=== PATIENT | male | born 1935 | race Caucasian/White ===

== ENCOUNTER → 2018-04-24 08:37 | Outpatient (CLI) | payer OTHER, SELFPAY ==
[2018-04-24 09:45] LABS: INR 3.9 (0.9-1.3); Prothrombin Time 42.2 SECONDS (10.1-12.7)
[2018-04-24 10:18] LABS: Alanine Aminotransferase 40 IU/L (21-72); Albumin 4.4 g/dL (3.5-5.0); Albumin Globulin Ratio 1.7 (1.0-2.8); Alkaline Phosphatase 44 U/L (38-126); Aspartate Aminotransferase 42 IU/L (17-59); BUN Creatinine Ratio 21.3 (6-22); Bilirubin Total 0.9 mg/dL (0.2-1.3); Blood Urea Nitrogen 17 mg/dL (9-20); Calcium 9.1 mg/dL (8.4-10.2); Carbon Dioxide 28 mmol/L (22-32); Chloride 102 mmol/L (98-107); Estimated Glomerular Filt Rate > 60.0 mL/min (>60); Globulin 2.6 g/dL (1.7-4.1); Glucose 115 mg/dL (80-110); HEMOLYSIS < 15 (0-50); Magnesium 2.2 mg/dL (1.6-2.3); Potassium 4.9 mmol/L (3.4-5.1); Sodium 141 mmol/L (137-145)
[2018-04-28 11:44] LABS: Lipoprofile NMR SEE SEPARATE REPORTS
== END ==
PROVIDERS: PCP Internal Medicine; Visit Provider Specialist
DX: I25.5 Ischemic cardiomyopathy (principal); E78.2 Mixed hyperlipidemia; I10 Essential (primary) hypertension; Z79.01 Long term (current) use of anticoagulants; Z95.810 Presence of automatic (implantable) cardiac defibrillator; Z95.4 Presence of other heart-valve replacement
CPT/HCPCS: 36415; 80053; 83704; 83735; 85610

== ENCOUNTER 2018-04-28 09:00 | Day surgery (SDC) | payer OTHER, SELFPAY ==
[2018-04-28] MEDS: PROPARACAINE 0.5% OPHTH SOL 2 DROPS EYE-OP (09:23)
[2018-04-28] MEDS: CATARACT EYE COMPOUND (10 DROPS/SYRINGE) 3 DROPS EYE-OP (09:28)
[2018-04-28 09:44] VITALS: BP 131/81; PULSE 78; RESP 16; TEMP 36.6; O2SAT 97
--- NOTE | 2018-04-28 10:23 | PM.PREOP ---
Pre-operative Note Interval Note Pre-op Check: History & Physical Reviewed by Physician
--- NOTE | 2018-04-28 10:50 | SUR.OPER ---
Supine on eye stretcher, head on extension cradle secured with tape. Arms tucked at sides with blanket. Pillow under knees.
[2018-04-28] MEDS: CHONDROIDTIN/SOD HYALURONATE 1.05 ML SYRINGE INTRAOCULA (10:54)
[2018-04-28] MEDS: MOXIFLOXACIN OPHTH DROPS 3 ML BOTTLE 2 DROPS INJ (10:54)
[2018-04-28] MEDS: TRIAMCINOLONE 50 MG/5 ML VIAL INJ (10:55)
[2018-04-28] MEDS: LIDOCAINE JELLY 2% 5 ML 1 APPLIC TOP (10:57)
[2018-04-28] MEDS: BALANCED SALT IRRIG SOLN NO.2 500 ML, EPINEPHrine 1 MG IRR (10:58)
[2018-04-28] MEDS: TETRACAINE 0.5% OPHTH DROPS 15 ML 2 DROPS EYE-RIGHT (10:58)
[2018-04-28] MEDS: PHENYLEPHRINE/LIDOCAINE 3ML VIAL (OR) EYE-OP (10:58)
--- NOTE | 2018-04-28 11:05 | P.OP_ITS ---
Operative Date/Time/Diagnoses - Pre-op diagnosis: Cataract Right eye Post-op diagnosis: same Procedure & Clinicians Procedure: Cataract Surgery Same procedure as scheduled: Yes Surgeon: Gopal Mcclellan Anesthesia Type: MAC +/- and Sedation Operative Notes Procedure in detail: Patient brought to the operating suite. Tetracaine drops placed in the right eye. Patient was prepped and draped in sterile manner. Wire lid speculum was placed in the eye. Betadine drops were placed on the eye. This was irrigated. Lidocaine jelly was placed on the eye. A paracentesis port was created with a side-port blade. 0.1 mL 1% preservative free lidocaine was injected into the anterior chamber. The anterior chamber was deepened with viscoelastic. 2.6 mm keratome was used to create a temporal clear corneal incision. Cystotome and Utrata forceps were used to create continuous tear capsulorrhexis. Balanced salt solution was used to hydro dissect the nucleus. The phacoemulsification handpiece was inserted and the nucleus was removed using the stop and chop technique. The irrigation aspiration handpiece was inserted and the remaining cortex was removed. Anterior chamber was deepened with viscoelastic. An Bustamante ZCB00 intraocular lens with a power of 22.0 was injected into the capsular bag. Irrigation aspiration handpiece was inserted and the remaining viscoelastic was removed. Incision was hydrated with balanced salt solution and found to be leak free with pressure with Weck- Lita sponges. 0.1 mL Vigamox injected anterior chamber. 0.3 mL Kenalog 10 mg was injected subconjunctivally. Lid speculum was removed. The patient left the operating room in excellent condition. Complications: none Condition: stable Disposition: same day surgery
[2018-04-28 11:19] VITALS: BP 139/81; PULSE 65; RESP 16; TEMP 36.4; O2SAT 97
== END 2018-04-28 11:23 | disposition home or self-care (01) ==
PROVIDERS: PCP Internal Medicine; Visit Provider Ophthalmology
DX: H25.11 Age-related nuclear cataract, right eye (principal); I10 Essential (primary) hypertension; I48.91 Unspecified atrial fibrillation
CPT/HCPCS: J0171; J2250; J3010; J3301

== ENCOUNTER → 2018-05-05 15:06 | Outpatient (CLI) | payer OTHER, SELFPAY ==
[2018-05-05 15:53] LABS: Prothrombin Time 42.6 SECONDS (10.1-12.7)
== END ==
PROVIDERS: PCP Internal Medicine; Visit Provider Internal Medicine
DX: Z79.01 Long term (current) use of anticoagulants (principal); Z95.2 Presence of prosthetic heart valve
CPT/HCPCS: 36415; 85610

== ENCOUNTER → 2018-06-09 10:34 | Outpatient (CLI) | payer OTHER, SELFPAY ==
[2018-06-09 13:31] LABS: INR 4.4 (0.9-1.3); Prothrombin Time 46.7 SECONDS (10.1-12.7)
== END ==
PROVIDERS: PCP Internal Medicine; Visit Provider Internal Medicine
DX: Z95.4 Presence of other heart-valve replacement (principal); Z95.810 Presence of automatic (implantable) cardiac defibrillator; Z79.01 Long term (current) use of anticoagulants
CPT/HCPCS: 36415; 85610

== ENCOUNTER → 2018-06-29 09:33 | Outpatient (CLI) | payer OTHER, SELFPAY ==
[2018-06-29 10:29] LABS: Prothrombin Time 33.5 SECONDS (10.1-12.7)
== END ==
PROVIDERS: PCP Internal Medicine; Visit Provider Internal Medicine
DX: Z79.01 Long term (current) use of anticoagulants (principal); Z95.4 Presence of other heart-valve replacement; Z95.810 Presence of automatic (implantable) cardiac defibrillator
CPT/HCPCS: 36415; 85610

== ENCOUNTER → 2018-09-01 12:12 | Outpatient (CLI) | payer OTHER, SELFPAY ==
[2018-09-01 13:02] LABS: INR 1.7 (0.9-1.3)
== END ==
PROVIDERS: PCP Internal Medicine; Visit Provider Internal Medicine
DX: Z79.01 Long term (current) use of anticoagulants (principal); Z95.4 Presence of other heart-valve replacement; Z95.810 Presence of automatic (implantable) cardiac defibrillator
CPT/HCPCS: 36415; 85610

== ENCOUNTER → 2018-09-24 10:44 | Outpatient (CLI) | payer OTHER, SELFPAY ==
[2018-09-24 12:16] LABS: INR 2.2 (0.9-1.3); Prothrombin Time 23.9 SECONDS (10.1-12.7)
== END ==
PROVIDERS: PCP Internal Medicine; Visit Provider Internal Medicine
DX: Z79.01 Long term (current) use of anticoagulants (principal); Z95.4 Presence of other heart-valve replacement
CPT/HCPCS: 36415; 85610

== ENCOUNTER → 2018-10-20 11:10 | Outpatient (CLI) | payer OTHER, SELFPAY ==
[2018-10-20 12:50] LABS: INR 2.9 (0.9-1.3)
== END ==
PROVIDERS: PCP Internal Medicine; Visit Provider Internal Medicine
DX: Z79.01 Long term (current) use of anticoagulants (principal); Z95.4 Presence of other heart-valve replacement; Z95.810 Presence of automatic (implantable) cardiac defibrillator
CPT/HCPCS: 36415; 85610

== ENCOUNTER → 2018-10-29 08:58 | Outpatient (CLI) | payer OTHER, SELFPAY ==
[2018-10-29 10:28] LABS: Alanine Aminotransferase 34 IU/L (21-72); Albumin 4.3 g/dL (3.5-5.0); Albumin Globulin Ratio 1.5 (1.0-2.8); Alkaline Phosphatase 48 U/L (38-126); Aspartate Aminotransferase 30 IU/L (17-59); BUN Creatinine Ratio 17.8 (6-22); Bilirubin Total 0.6 mg/dL (0.2-1.3); Blood Urea Nitrogen 16 mg/dL (9-20); Calcium 9.2 mg/dL (8.4-10.2); Carbon Dioxide 30 mmol/L (22-32); Chloride 104 mmol/L (98-107); Estimated Glomerular Filt Rate > 60.0 mL/min (>60); Globulin 2.9 g/dL (1.7-4.1); Glucose 105 mg/dL (80-110); HEMOLYSIS < 15 (0-50); Magnesium 2.1 mg/dL (1.6-2.3); Potassium 4.5 mmol/L (3.4-5.1); Sodium 142 mmol/L (137-145); Total Protein 7.2 g/dL (6.3-8.2)
[2018-11-02 11:37] LABS: Lipoprofile NMR SEE SEPERATE REPORT
== END ==
PROVIDERS: PCP Internal Medicine; Visit Provider Specialist
DX: E78.2 Mixed hyperlipidemia (principal); I10 Essential (primary) hypertension
CPT/HCPCS: 36415; 80053; 83704; 83735

== ENCOUNTER → 2018-12-10 10:33 | Outpatient (CLI) | payer MEDICARE, SELFPAY ==
[2018-12-10 11:38] LABS: INR 3.4 (0.9-1.3); Prothrombin Time 40.4 SECONDS (10.1-12.7)
== END ==
PROVIDERS: PCP Internal Medicine; Visit Provider Internal Medicine
DX: Z79.01 Long term (current) use of anticoagulants (principal); Z95.4 Presence of other heart-valve replacement; Z95.810 Presence of automatic (implantable) cardiac defibrillator; I10 Essential (primary) hypertension
CPT/HCPCS: 36415; 85610

== ENCOUNTER → 2019-01-01 09:44 | Outpatient (CLI) | payer MEDICARE, SELFPAY ==
[2019-01-01 10:14] LABS: INR 2.2 (0.9-1.3); Prothrombin Time 25.6 SECONDS (10.1-12.7)
== END ==
PROVIDERS: PCP Internal Medicine; Visit Provider Internal Medicine
DX: Z79.01 Long term (current) use of anticoagulants (principal); Z95.4 Presence of other heart-valve replacement; Z95.810 Presence of automatic (implantable) cardiac defibrillator
CPT/HCPCS: 36415; 85610

== ENCOUNTER → 2019-02-08 14:40 | Outpatient (CLI) | payer MEDICARE, SELFPAY ==
[2019-02-08 15:09] LABS: Prothrombin Time 23.3 SECONDS (10.1-12.7)
== END ==
PROVIDERS: PCP Internal Medicine; Visit Provider Internal Medicine
DX: Z79.01 Long term (current) use of anticoagulants (principal); Z95.4 Presence of other heart-valve replacement
CPT/HCPCS: 36415; 85610

== ENCOUNTER → 2019-03-11 16:29 | Outpatient (CLI) | payer MEDICARE, SELFPAY ==
[2019-03-11 18:24] LABS: INR 2.1 (0.9-1.3); Prothrombin Time 24.4 SECONDS (10.1-12.7)
== END ==
PROVIDERS: PCP Internal Medicine; Visit Provider Internal Medicine
DX: Z79.01 Long term (current) use of anticoagulants (principal); Z95.4 Presence of other heart-valve replacement; Z95.810 Presence of automatic (implantable) cardiac defibrillator
CPT/HCPCS: 36415; 85610

== ENCOUNTER → 2019-04-06 13:39 | Outpatient (CLI) | payer MEDICARE, SELFPAY ==
[2019-04-06 15:38] LABS: INR 2.1 (0.9-1.3); Prothrombin Time 24.2 SECONDS (10.1-12.7)
== END ==
PROVIDERS: PCP Internal Medicine; Visit Provider Internal Medicine
DX: Z79.01 Long term (current) use of anticoagulants (principal); Z95.4 Presence of other heart-valve replacement; Z95.810 Presence of automatic (implantable) cardiac defibrillator
CPT/HCPCS: 36415; 85610

== ENCOUNTER → 2019-04-23 10:28 | Outpatient (CLI) | payer MEDICARE, SELFPAY ==
[2019-04-23 11:33] LABS: Add Manual Diff / Slide Review NO; Basophils Absolute Auto 0 /uL (0-100); Basophils Percent Auto 0.3 % (0-2); Eosinophils Absolute Auto 100 /uL (0-450); Eosinophils Percent Auto 1.5 % (2-4); Hematocrit 41.8 % (41-53); Hemoglobin 14.2 g/dL (13.5-17.5); Lymphocytes Absolute Auto 1100 /uL (1100-4500); Lymphocytes Percent Auto 15.7 % (25-40); Mean Corpuscular Hemoglobin 31.4 PG (26-34); Mean Corpuscular Volume 92.1 fL (80-100); Monocytes Absolute Auto 700 /uL (0-900); Monocytes Percent Auto 9.8 % (3-14); Neutrophils Absolute Auto 5200 /uL (1500-7000); Neutrophils Percent Auto 72.7 % (50-75); Platelet Count 138 X10^3/uL (150-400); Red Blood Cell Count 4.53 X10^6/uL (4.5-5.9); Red Cell Distribution Width 16.1 % (11.6-14.8); White Blood Cell Count 7.2 X10^3/uL (4.5-11.0)
[2019-04-23 11:42] LABS: Alanine Aminotransferase 27 IU/L (21-72); Albumin 4.3 g/dL (3.5-5.0); Albumin Globulin Ratio 1.6 (1.0-2.8); Alkaline Phosphatase 56 U/L (38-126); Aspartate Aminotransferase 42 IU/L (17-59); Blood Urea Nitrogen 12 mg/dL (9-20); C-Reactive Protein Quant 1.5 mg/dL (<1.0); Calcium 9.4 mg/dL (8.4-10.2); Carbon Dioxide 30 mmol/L (22-32); Chloride 103 mmol/L (98-107); Estimated Glomerular Filt Rate > 60.0 mL/min (>60); Globulin 2.7 g/dL (1.7-4.1); Glucose 95 mg/dL (80-110); HEMOLYSIS < 15 (0-50); INR 3.5 (0.9-1.3); Potassium 4.6 mmol/L (3.4-5.1); Prothrombin Time 40.9 SECONDS (10.1-12.7); Sodium 138 mmol/L (137-145)
[2019-04-23 11:53] LABS: B Type Natriuretic Peptide 354 (<100); Erythrocyte Sedimentation Rate 14 MM/HR (0-15)
[2019-04-23 12:10] LABS: TSH w/ Reflex to FT4 3.28 uIU/mL (0.47-4.68)
== END ==
PROVIDERS: PCP Internal Medicine; Visit Provider Internal Medicine
DX: I25.10 Atherosclerotic heart disease of native coronary artery without angina pectoris (principal); R06.00 Dyspnea, unspecified; R53.83 Other fatigue; Z79.01 Long term (current) use of anticoagulants; Z95.4 Presence of other heart-valve replacement
CPT/HCPCS: 36415; 80053; 83880; 84443; 85025; 85610; 85651; 86140

== ENCOUNTER → 2019-04-27 06:51 | Outpatient (CLI) | payer MEDICARE, SELFPAY ==
--- NOTE | 2019-04-27 06:54 | DI.RAD.S_ITS ---
PROCEDURE: XR CHEST 2V INDICATIONS: dyspnea TECHNIQUE: 2 views of the chest were acquired. COMPARISON: [facility], RG, XR CXR 2 VIEW, 06/29/2004, 15:10. [facility], CR, CHEST 2 VIEW, 07/13/2009, 15:17. FINDINGS: Surgical changes and devices: There is a cardiac pacemaker/defibrillator in appropriate position. Sternotomy and CABG. Lungs and pleura: Lungs are clear. No pleural effusions or pneumothorax. Mediastinum: Mediastinal contours are normal. Heart size is normal. Bones and chest wall: No suspicious bony abnormalities. Soft tissues appear unremarkable. IMPRESSION: No acute cardiopulmonary disease. Dictated by: Yadira Quinn M.D. on 04/27/2019 at 8:11 Approved by: Yadira Quinn M.D. on 04/27/2019 at 8:11
[2019-04-27 08:58] LABS: Alanine Aminotransferase 30 IU/L (21-72); Albumin 4.3 g/dL (3.5-5.0); Albumin Globulin Ratio 1.5 (1.0-2.8); Alkaline Phosphatase 53 U/L (38-126); Aspartate Aminotransferase 39 IU/L (17-59); BUN Creatinine Ratio 17.8 (6-22); Bilirubin Total 0.9 mg/dL (0.2-1.3); Blood Urea Nitrogen 16 mg/dL (9-20); Calcium 9.3 mg/dL (8.4-10.2); Carbon Dioxide 31 mmol/L (22-32); Chloride 103 mmol/L (98-107); Estimated Glomerular Filt Rate > 60.0 mL/min (>60); Globulin 2.8 g/dL (1.7-4.1); Glucose 100 mg/dL (80-110); HEMOLYSIS < 15 (0-50); Magnesium 2.2 mg/dL (1.6-2.3); Potassium 4.7 mmol/L (3.4-5.1); Sodium 140 mmol/L (137-145); Total Protein 7.1 g/dL (6.3-8.2)
[2019-04-29 08:36] LABS: Lipoprofile NMR SEE SEPERATE REPORT
== END ==
PROVIDERS: PCP Internal Medicine; Referring Provider Specialist; Visit Provider Internal Medicine
DX: I25.10 Atherosclerotic heart disease of native coronary artery without angina pectoris (principal); R06.00 Dyspnea, unspecified; R53.83 Other fatigue; E78.2 Mixed hyperlipidemia; I47.2 Ventricular tachycardia; I48.92 Unspecified atrial flutter; Z79.01 Long term (current) use of anticoagulants
CPT/HCPCS: 36415; 71046; 80053; 83704; 83735

== ENCOUNTER → 2019-05-21 14:52 | Outpatient (CLI) | payer MEDICARE, SELFPAY ==
--- NOTE | 2019-05-26 10:30 | PM.PFT.1 ---
Pulmonary Function Test Referral & Results Date Patient Seen: 05/21/19 Requesting provider: Randell Clarke Results: The spirometry demonstrates an FVC of 2.14 L which is 60% of predicted. The FEV1 was measured at 1.61 L which is 65% of predicted. The FEV1/FVC ratio was 75 which is 105% of predicted. Following the administration of bronchodilator there was a 10% improvement in FEV1 and a 49% improvement in FEF 25-75%. Lung volumes show an SVC of 2.39 L which is 59% of predicted. The diffusing capacity was measured at 20.41 which is 60% of predicted. The maximum voluntary ventilation was normal Interpretation: This study demonstrates moderate obstructive lung disease based on reduction FEV1. There is some improvement following bronchodilator based on improvement in FEV1 and FEF 25-75% There is more significant reduction in lung volumes suggesting significant restrictive lung disease and a more significant reduction in diffusing capacity, unless patient is anemic, suggesting an element of disease at the capillary alveolar level Altogether given the reduced lung volumes and diffusing capacity, with somewhat better than expected obstructive changes, this would be consistent with an interstitial process such as pulmonary fibrosis more than COPD. Clinical correlation suggested
== END ==
PROVIDERS: PCP Internal Medicine; Visit Provider Internal Medicine
DX: R06.09 Other forms of dyspnea (principal)
CPT/HCPCS: 94060; 94726; 94729

== ENCOUNTER → 2019-05-28 14:22 | Outpatient (CLI) | payer MEDICARE, SELFPAY ==
[2019-05-28 16:02] LABS: Prothrombin Time 55.3 SECONDS (10.1-12.7)
[2019-05-28 16:07] LABS: INR 4.6 (0.9-1.3)
== END ==
PROVIDERS: PCP Internal Medicine; Visit Provider Internal Medicine
DX: Z79.01 Long term (current) use of anticoagulants (principal); Z95.4 Presence of other heart-valve replacement
CPT/HCPCS: 36415; 85610

== ENCOUNTER → 2019-06-03 16:37 | Outpatient (CLI) | payer MEDICARE, SELFPAY ==
[2019-06-03 19:00] LABS: INR 2.4 (0.9-1.3); Prothrombin Time 27.8 SECONDS (10.1-12.7)
== END ==
PROVIDERS: PCP Internal Medicine; Visit Provider Internal Medicine
DX: Z79.01 Long term (current) use of anticoagulants (principal); Z95.4 Presence of other heart-valve replacement
CPT/HCPCS: 36415; 85610

== ENCOUNTER → 2019-07-22 12:03 | Outpatient (CLI) | payer MEDICARE, SELFPAY ==
[2019-07-22 13:18] LABS: INR 5.1 (0.9-1.3); Prothrombin Time 60.6 SECONDS (10.1-12.7)
== END ==
PROVIDERS: PCP Internal Medicine; Visit Provider Internal Medicine
DX: Z79.01 Long term (current) use of anticoagulants (principal); Z95.2 Presence of prosthetic heart valve
CPT/HCPCS: 36415; 85610

== ENCOUNTER → 2019-08-05 15:32 | Outpatient (CLI) | payer MEDICARE, SELFPAY ==
[2019-08-05 16:21] LABS: Prothrombin Time 35.7 SECONDS (10.1-12.7)
== END ==
PROVIDERS: PCP Internal Medicine; Visit Provider Internal Medicine
DX: Z79.01 Long term (current) use of anticoagulants (principal); Z95.4 Presence of other heart-valve replacement
CPT/HCPCS: 36415; 85610

== ENCOUNTER → 2019-09-01 09:17 | Outpatient (CLI) | payer MEDICARE, SELFPAY ==
[2019-09-01 10:26] LABS: Alanine Aminotransferase 39 IU/L (21-72); Albumin 4.4 g/dL (3.5-5.0); Albumin Globulin Ratio 1.5 (1.0-2.8); Alkaline Phosphatase 50 U/L (38-126); Aspartate Aminotransferase 42 IU/L (17-59); BUN Creatinine Ratio 17.5 (6-22); Bilirubin Total 0.9 mg/dL (0.2-1.3); Blood Urea Nitrogen 14 mg/dL (9-20); Calcium 9.5 mg/dL (8.4-10.2); Carbon Dioxide 31 mmol/L (22-32); Chloride 103 mmol/L (98-107); Estimated Glomerular Filt Rate > 60.0 mL/min (>60); Glucose 110 mg/dL (80-110); HEMOLYSIS < 15 (0-50); Potassium 5.3 mmol/L (3.4-5.1); Sodium 141 mmol/L (137-145); Total Protein 7.4 g/dL (6.3-8.2)
[2019-09-01 10:32] LABS: INR 3.5 (0.9-1.3)
[2019-09-01 13:02] LABS: Magnesium 2.3 mg/dL (1.6-2.3)
[2019-09-03 10:47] LABS: Lipoprofile NMR SEE SEPARATE REPORTS
== END ==
PROVIDERS: PCP Internal Medicine; Referring Provider Specialist; Visit Provider Student in an Organized Health Care Education/Training Program
DX: E78.2 Mixed hyperlipidemia (principal); I47.2 Ventricular tachycardia; Z79.01 Long term (current) use of anticoagulants; Z95.4 Presence of other heart-valve replacement
CPT/HCPCS: 36415; 80053; 83704; 83735; 85610

== ENCOUNTER → 2019-10-05 10:58 | Outpatient (CLI) | payer MEDICARE, SELFPAY ==
[2019-10-05 12:26] LABS: Prothrombin Time 35.5 SECONDS (10.1-12.7)
== END ==
PROVIDERS: PCP Internal Medicine; Visit Provider Internal Medicine
DX: Z79.01 Long term (current) use of anticoagulants (principal); Z95.2 Presence of prosthetic heart valve
CPT/HCPCS: 36415; 85610

== ENCOUNTER → 2019-11-30 10:25 | Outpatient (CLI) | payer MEDICARE, SELFPAY ==
[2019-11-30 12:02] LABS: INR 3.2 (0.9-1.3)
== END ==
PROVIDERS: PCP Internal Medicine; Visit Provider Internal Medicine
DX: Z79.01 Long term (current) use of anticoagulants (principal); Z95.2 Presence of prosthetic heart valve
CPT/HCPCS: 36415; 85610

== ENCOUNTER → 2020-01-11 10:40 | Outpatient (CLI) | payer MEDICARE, SELFPAY ==
[2020-01-11 13:49] LABS: INR 2.9 (0.9-1.3); Prothrombin Time 32.6 SECONDS (10.1-12.7)
== END ==
PROVIDERS: PCP Internal Medicine; Referring Provider Internal Medicine; Visit Provider Internal Medicine
DX: I10 Essential (primary) hypertension (principal); I77.9 Disorder of arteries and arterioles, unspecified; Z79.01 Long term (current) use of anticoagulants; Z95.2 Presence of prosthetic heart valve; Z95.4 Presence of other heart-valve replacement; Z95.810 Presence of automatic (implantable) cardiac defibrillator
CPT/HCPCS: 36415; 85610

== ENCOUNTER → 2020-02-21 10:32 | Outpatient (CLI) | payer MEDICARE, SELFPAY ==
[2020-02-21 12:25] LABS: INR 4.3 (0.9-1.3); Prothrombin Time 48.3 SECONDS (10.1-12.7)
[2020-02-21 12:49] LABS: Alanine Aminotransferase 34 IU/L (<50); Albumin 4.8 g/dL (3.5-5.0); Albumin Globulin Ratio 1.5 (1.0-2.8); Alkaline Phosphatase 51 U/L (38-126); Aspartate Aminotransferase 45 IU/L (17-59); BUN Creatinine Ratio 16.3 (6-22); Bilirubin Total 0.7 mg/dL (0.2-1.3); Blood Urea Nitrogen 14 mg/dL (9-20); Calcium 9.5 mg/dL (8.4-10.2); Carbon Dioxide 28 mmol/L (22-32); Chloride 104 mmol/L (98-107); Estimated Glomerular Filt Rate > 60.0 mL/min (>60); Globulin 3.3 g/dL (1.7-4.1); Glucose 98 mg/dL (80-110); HEMOLYSIS < 15 (0-50); Magnesium 2.3 mg/dL (1.6-2.3); Potassium 4.6 mmol/L (3.4-5.1); Sodium 141 mmol/L (137-145); Total Protein 8.1 g/dL (6.3-8.2)
[2020-02-23 11:58] LABS: Cholesterol, Total 106 mg/dL (100-199); HDL-Cholesterol 55 mg/dL (>39); HDL-Particle (Total) 35.5 umol/L (>=30.5); Historical Reading Comment: (.); LDL Particle <300 nmol/L (<1000); LDL-Cholsterol 27 mg/dL (0-99); LP-IR Score 29 (<=45); Small LDL- Particle 122 nmol/L (<=527); Triglycerides 122 mg/dL (0-149)
== END ==
PROVIDERS: PCP Internal Medicine; Referring Provider Internal Medicine; Visit Provider Specialist
DX: E78.2 Mixed hyperlipidemia (principal); I10 Essential (primary) hypertension; I25.5 Ischemic cardiomyopathy; I77.9 Disorder of arteries and arterioles, unspecified; Z79.01 Long term (current) use of anticoagulants; Z95.2 Presence of prosthetic heart valve; Z95.4 Presence of other heart-valve replacement; Z95.810 Presence of automatic (implantable) cardiac defibrillator
CPT/HCPCS: 36415; 80053; 80061; 83704; 83735; 85610

== ENCOUNTER → 2020-09-01 08:46 | Outpatient (CLI) | payer MEDICARE, SELFPAY ==
[2020-09-01 09:51] LABS: INR 2.4 (0.9-1.3); Prothrombin Time 27.2 SECONDS (10.1-12.7)
[2020-09-01 10:20] LABS: Alanine Aminotransferase 31 IU/L (<50); Albumin 4.5 g/dL (3.5-5.0); Albumin Globulin Ratio 1.7 (1.0-2.8); Alkaline Phosphatase 51 U/L (38-126); Aspartate Aminotransferase 39 IU/L (17-59); BUN Creatinine Ratio 17.3 (6-22); Bilirubin Total 0.8 mg/dL (0.2-1.3); Blood Urea Nitrogen 17 mg/dL (9-20); Calcium 9.2 mg/dL (8.4-10.2); Carbon Dioxide 30 mmol/L (22-32); Chloride 103 mmol/L (98-107); Estimated Glomerular Filt Rate > 60.0 mL/min (>60); Globulin 2.7 g/dL (1.7-4.1); Glucose 105 mg/dL (80-110); HEMOLYSIS < 15 (0-50); Magnesium 2.3 mg/dL (1.6-2.3); Potassium 5.3 mmol/L (3.4-5.1); Sodium 140 mmol/L (137-145); Total Protein 7.2 g/dL (6.3-8.2)
[2020-09-06 13:25] LABS: HDL-Cholesterol 60; LDL Particle 670; LDL-Cholsterol 35
[2020-09-06 13:26] LABS: Cholesterol, Total 110; HDL-Particle (Total) 39.1; LDL Size 20.1; LP-IR Score 27; Small LDL- Particle 364; Triglycerides 73
== END ==
PROVIDERS: PCP Internal Medicine; Referring Provider Specialist; Visit Provider Specialist
DX: E78.2 Mixed hyperlipidemia (principal); I47.2 Ventricular tachycardia; Z95.2 Presence of prosthetic heart valve; Z95.4 Presence of other heart-valve replacement
CPT/HCPCS: 36415; 80053; 80061; 83704; 83735; 85610

== ENCOUNTER → 2020-11-07 08:45 | Outpatient (CLI) | payer MEDICARE, SELFPAY ==
[2020-11-07 09:44] LABS: INR 1.9 (0.9-1.3); Prothrombin Time 21.5 SECONDS (10.1-12.7)
[2020-11-07 10:15] LABS: Blood Urea Nitrogen 13 mg/dL (9-20); Calcium 9.2 mg/dL (8.4-10.2); Carbon Dioxide 33 mmol/L (22-32); Chloride 103 mmol/L (98-107); Estimated Glomerular Filt Rate > 60.0 mL/min (>60); Glucose 99 mg/dL (80-110); HEMOLYSIS < 15 (0-50); Magnesium 2.3 mg/dL (1.6-2.3); Potassium 4.9 mmol/L (3.4-5.1); Sodium 138 mmol/L (137-145)
== END ==
PROVIDERS: PCP Internal Medicine; Referring Provider Specialist; Visit Provider Specialist
DX: I25.5 Ischemic cardiomyopathy (principal); I10 Essential (primary) hypertension; Z79.01 Long term (current) use of anticoagulants; Z95.4 Presence of other heart-valve replacement
CPT/HCPCS: 36415; 80048; 83735; 85610

== ENCOUNTER → 2020-11-30 12:13 | Outpatient (CLI) | payer MEDICARE, SELFPAY ==
[2020-11-30 12:50] LABS: INR 2.4 (0.9-1.3); Prothrombin Time 27.6 SECONDS (10.1-12.7)
== END ==
PROVIDERS: PCP Internal Medicine; Referring Provider Internal Medicine; Visit Provider Internal Medicine
DX: Z79.01 Long term (current) use of anticoagulants (principal); Z95.4 Presence of other heart-valve replacement
CPT/HCPCS: 36415; 85610

== ENCOUNTER → 2021-01-04 10:30 | Outpatient (CLI) | payer MEDICARE, SELFPAY ==
[2021-01-04 11:40] LABS: INR 2.5 (0.9-1.3); Prothrombin Time 28.2 SECONDS (10.1-12.7)
[2021-01-04 11:53] LABS: BUN Creatinine Ratio 19.4 (6-22); Blood Urea Nitrogen 18 mg/dL (9-20); Calcium 9.4 mg/dL (8.4-10.2); Carbon Dioxide 32 mmol/L (22-32); Chloride 102 mmol/L (98-107); Estimated Glomerular Filt Rate > 60.0 mL/min (>60); Glucose 98 mg/dL (80-110); HEMOLYSIS < 15 (0-50); Magnesium 2.3 mg/dL (1.6-2.3); Potassium 4.7 mmol/L (3.4-5.1); Sodium 138 mmol/L (137-145)
== END ==
PROVIDERS: PCP Internal Medicine; Referring Provider Specialist; Visit Provider Specialist
DX: I25.5 Ischemic cardiomyopathy (principal); I10 Essential (primary) hypertension; Z79.01 Long term (current) use of anticoagulants; Z95.4 Presence of other heart-valve replacement
CPT/HCPCS: 36415; 80048; 83735; 85610

== ENCOUNTER 2021-01-05 12:47 | Emergency (ER) | payer MEDICARE, SELFPAY ==
[2021-01-05 12:50] VITALS: BP 181/88; PULSE 81; RESP 15; TEMP 36.8; O2SAT 95; BMI 30.5
[2021-01-05] MEDS: LIDO 1%/SOD BICARB 8.4% (10ML) 10 ML SYRINGE INJ (13:05)
--- NOTE | 2021-01-05 13:17 | ED_ITS ---
HPI - Wound/Laceration General Chief Complaint: Wound/Laceration Stated Complaint: wound right hand, thumb, table saw, on thinners Time Seen by Provider: 01/05/21 12:48 Source: patient Mode of arrival: Ambulatory Limitations: no limitations History of Present Illness HPI narrative: 85-year-old male nonsmoker with history of valve replacement on Coumadin as well as hypertension and hyperlipidemia presents with his and a chief complaint of an accidental avulsion laceration to the tip of his right thumb yesterday. He was using a saw when he accidentally caused this laceration. Despite his best efforts to control the bleeding it continued to saturate dressings overnight. His tetanus is up-to-date. He is not dizzy nor weak or lightheaded. He checked his INR yesterday it was 2.5. Onset (ago): hour(s) Place: home Patient tetanus UTD: Yes Context: accidental Associated symptoms: none Related Data Home Medications Medication Instructions Recorded Confirmed CA PANTOTHENATE/FOLIC ACID/VIT 1 tab PO QDAY #0 11/12/12 08/29/20 (MULTIVITAMIN) VITAMIN D (Vitamin D3) 1,000 iu PO QDAY #0 01/27/17 08/29/20 [ZINC/MAG/CALCIUM] 1 tab PO QDAY #0 01/27/17 08/29/20 cyanocobalamin (vitamin B-12) 500 mcg PO DAILY 04/28/18 08/29/20 [Vitamin B-12] metoprolol succinate 25 mg 25 mg PO DAILY 07/20/18 08/29/20 tablet,extended release 24 hr Oral Liquid Turmeric 1 tbsp PO DAILY 04/23/19 08/29/20 arginine (L-arginine) 500 mg 500 mg PO DAILY cap 04/23/19 08/29/20 capsule coenzyme Q10 100 mg capsule 100 mg PO DAILY 04/23/19 08/29/20 colostrum, bovine 500 mg capsule 500 mg PO DAILY cap 04/23/19 08/29/20 lactobacillus combination no.8 3 3,000 mmu cells PO DAILY 04/23/19 08/29/20 billion cell capsule lisinopril 20 mg tablet 10 mg PO DAILY tab 04/23/19 08/29/20 omega-3 fatty acids 1,000 mg 1,000 mg PO DAILY 04/23/19 08/29/20 capsule Previous Rx's Medication Instructions Recorded warfarin 7.5 mg tablet See Rx Instructions .ROUTE 08/03/20 .COMPLEX #120 tablet warfarin 5 mg tablet 5 mg PO DAILY #120 tab 08/25/20 sildenafil 100 mg tablet 100 mg PO DAILY PRN #30 tab 08/29/20 Allergies Allergy/AdvReac Type Severity Reaction Status Date / Time warfarin [From Coumadin] Allergy Verified 01/05/21 12:56 simvastatin [SIMVASTATIN] AdvReac Mild muscle Verified 01/05/21 12:56 weakness Review of Systems Constitutional Constitutional: Denies body ache(s) and Denies fatigue Cardiovascular Cardiovascular: Denies chest pain, Denies lightheadedness and Denies dyspnea Respiratory Respiratory: Denies dyspnea Gastrointestinal Gastrointestinal: Denies nausea and Denies vomiting Integumentary/Breasts Skin/Breast: Reports wounds Endocrine Endocrine: Denies fatigue Patient History Medical History Cardiac arrhythmia Carotid artery disease Coronary artery disease Essential hypertension History of adenomatous polyp of colon History of heart valve replacement (08/18/13) Hyperlipidemia Hypogonadism in male (01/05/13) 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 Osteoarthritis, knee 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) Surgical History Anesthesia History of aortic valve replacement History of aortic valve replacement with metallic valve History of cervical fracture History of implantable cardioverter-defibrillator (ICD) placement Presence of cardiac pacemaker S/P total knee arthroplasty Status post coronary artery bypass graft (~1998) Social History marital status: number of children: 3 household members: spouse and other lives independently: Yes caregiver/support person: No housing: house pets and animals: No education level: high school occupational status: other (Retired) Previous occupational history: Machineist. nataly/tenriism: [employer] leisure activities: other (Yard work, bird feeding. Outside house work.) Smoking Status: Never smoker Tobacco: How many years used: 0 quit status: quit date established (Never Started) second hand exposure: No alcohol intake: current (Rarely - wine once in a while.) substance use type: does not use Smoking Status: Never smoker alcohol intake frequency: holidays/special occasions only Substance Use Type: does not use Exam Narrative Exam Narrative: GEN: AOx3 and in mild distress EYES: Pupils are equal, round, and reactive to light and accommodation. Extraoccular muscles are intact bilaterally. There is no subconjunctival hemorrhage or exudate. CHEST: Lungs are clear to auscultation bilaterally and free of wheezes, rales, or rhonchi. Heart rate is regular rhythm, there are no murmurs, clicks, rubs, or gallops. There is no chest wall tenderness. ABD: Abdomen is soft and nontender. There is no guarding or rebound. Bowel shannan nds are normal in all 4 quadrants. There is no mass or organomegaly. EXT: 0.25x0.25cm avulsion lacceration to tip of finger with active bleeding, bleeding easily controlled. Full painless ROM of all extremities with no loss of sensation or strength. SKIN: Warm, pink, and dry. No erythema or rash Initial Vital Signs Initial Vital Signs: Vital Signs Temperature 98.3 F 01/05/21 12:50 Pulse Rate 81 01/05/21 12:50 Respiratory Rate 15 01/05/21 12:50 Blood Pressure 181/88 H 01/05/21 12:50 Pulse Oximetry 95 01/05/21 12:50 Procedures Laceration Repair Laceration 1: Site: hand Side (If applicable): right Size (cm): 0.25 Description: other (avulsion) Depth: simple, single layer Skin layer closed with: nylon Size (cm): 4-0 Number of sutures: 1 Technique: simple, interrupted and other (deep biting stitch for hemostasis only) Nerve Block Nerve Block 1: Time out performed: Yes Local Anesthetic: lidocaine 1% and with bicarb Amount of anesthesia used (mL): 3 Side: right Nerve Blocks: digital Procedure Successful: Yes Patient Tolerated Procedure: Well Complications: none Course Orders Ordered: Discontinued Medications Lidocaine/Sodium Bicarbonate (Lido 1%/Sod Bicarb 8.4% (10ml) 10 Ml Syringe) 10 ml INJ NOW ONE Stop: 01/05/21 13:00 Last Admin: 01/05/21 13:05 Dose: 10 ml Documented by: JERRICA Vital Signs Vital signs: Vital Signs - 8 hr 01/05/21 12:50 01/05/21 13:27 Temperature 98.3 F Pulse Rate 81 71 Respiratory Rate 15 Blood Pressure 181/88 H 141/76 H Pulse Oximetry 95 94 Discharge Plan Departure Patient Disposition: Home Clinical Impression: Laceration Instructions: DI for Laceration Repair Activity Restrictions/Additional Instructions: *You have been diagnosed with [ avulsion laceration on coumadin] *What to do: *Take medications as directed *Follow up with your primary care provider in 5-7 days, call for an appointment. Let them know you were seen in the Emergency Department and that we ask that you be seen in follow up *Return to ER if you should have any new, worsening or concerning symptoms Prescriptions: No Action CA PANTOTHENATE/FOLIC ACID/VIT (MULTIVITAMIN) 1 tab PO QDAY Qty: 0 RF: 0 VITAMIN D (Vitamin D3) 1,000 iu PO QDAY Qty: 0 RF: 0 [ZINC/MAG/CALCIUM] 1 tab PO QDAY Qty: 0 RF: 0 warfarin 7.5 mg tablet See Rx Instructions .ROUTE .COMPLEX Qty: 120 RF: 0 warfarin 5 mg tablet 5 mg PO DAILY Qty: 120 RF: 0 metoprolol succinate 25 mg tablet extended release 24 hr 25 mg PO DAILY RF: 0 sildenafil [Viagra] 100 mg tablet 100 mg PO DAILY PRN (Reason: erectile dysfunction) Qty: 30 RF: 4 omega-3 fatty acids 1,000 mg capsule 1,000 mg PO DAILY RF: 0 arginine (L-arginine) 500 mg capsule 500 mg PO DAILY RF: 0 coenzyme Q10 [Co Q-10] 100 mg capsule 100 mg PO DAILY RF: 0 colostrum, bovine 500 mg capsule 500 mg PO DAILY RF: 0 Adult Probiotic 3 billion cell capsule 3,000 mmu cells PO DAILY RF: 0 Oral Liquid Turmeric 1 tbsp PO DAILY RF: 0 cyanocobalamin (vitamin B-12) [Vitamin B-12] 1,000 mcg Tablet 500 mcg PO DAILY RF: 0 lisinopril 20 mg tablet 10 mg PO DAILY RF: 0 Referrals: Randell Clarke MD [Primary Care Provider] -
[2021-01-05 13:27] VITALS: BP 141/76; PULSE 71; O2SAT 94
== END 2021-01-05 13:28 | disposition home or self-care (01) ==
PROVIDERS: Emergency Provider Emergency Medicine; PCP Internal Medicine
DX: S61.011A Laceration without foreign body of right thumb without damage to nail, initial encounter (principal); W29.8XXA Contact with other powered hand tools and household machinery, initial encounter; Z95.2 Presence of prosthetic heart valve; Z79.01 Long term (current) use of anticoagulants; I10 Essential (primary) hypertension; E78.5 Hyperlipidemia, unspecified; I25.10 Atherosclerotic heart disease of native coronary artery without angina pectoris; Z95.0 Presence of cardiac pacemaker
CPT/HCPCS: 12001; 64450; 99281; 99282; 99283

== ENCOUNTER → 2021-01-12 14:34 | Outpatient (CLI) | payer MEDICARE, SELFPAY ==
[2021-01-12 16:26] LABS: Alanine Aminotransferase 36 IU/L (<50); Albumin 4.7 g/dL (3.5-5.0); Albumin Globulin Ratio 1.5 (1.0-2.8); Alkaline Phosphatase 52 U/L (38-126); Aspartate Aminotransferase 46 IU/L (17-59); BUN Creatinine Ratio 21.3 (6-22); Bilirubin Total 0.7 mg/dL (0.2-1.3); Blood Urea Nitrogen 19 mg/dL (9-20); Calcium 9.3 mg/dL (8.4-10.2); Carbon Dioxide 33 mmol/L (22-32); Chloride 99 mmol/L (98-107); Estimated Glomerular Filt Rate > 60.0 mL/min (>60); Globulin 3.1 g/dL (1.7-4.1); Glucose 80 mg/dL (80-110); HEMOLYSIS < 15 (0-50); Magnesium 2.4 mg/dL (1.6-2.3); Potassium 4.4 mmol/L (3.4-5.1); Sodium 137 mmol/L (137-145); Total Protein 7.8 g/dL (6.3-8.2)
== END ==
PROVIDERS: PCP Internal Medicine; Referring Provider Specialist; Visit Provider Specialist
DX: I10 Essential (primary) hypertension (principal); E78.00 Pure hypercholesterolemia, unspecified
CPT/HCPCS: 36415; 80053; 83735

== ENCOUNTER → 2021-02-15 13:29 | Outpatient (CLI) | payer MEDICARE, SELFPAY ==
[2021-02-15 15:41] LABS: INR 2.7 (0.9-1.3); Prothrombin Time 29.8 SECONDS (10.1-12.7)
== END ==
PROVIDERS: PCP Internal Medicine; Referring Provider Internal Medicine; Visit Provider Internal Medicine
DX: Z79.01 Long term (current) use of anticoagulants (principal); Z95.2 Presence of prosthetic heart valve
CPT/HCPCS: 36415; 85610

== ENCOUNTER → 2021-03-15 12:07 | Outpatient (CLI) | payer MEDICARE, SELFPAY ==
[2021-03-15 13:54] LABS: Add Manual Diff / Slide Review NO; Alanine Aminotransferase 32 IU/L (<50); Albumin 4.4 g/dL (3.5-5.0); Albumin Globulin Ratio 1.6 (1.0-2.8); Alkaline Phosphatase 42 U/L (38-126); Aspartate Aminotransferase 43 IU/L (17-59); Basophils Absolute Auto 0 /uL (0-100); Basophils Percent Auto 0.4 % (0-2); Bilirubin Total 0.5 mg/dL (0.2-1.3); Blood Urea Nitrogen 17 mg/dL (9-20); Calcium 9.3 mg/dL (8.4-10.2); Carbon Dioxide 28 mmol/L (22-32); Chloride 104 mmol/L (98-107); Cholesterol 108 mg/dL (140-199); Eosinophils Absolute Auto 100 /uL (0-450); Eosinophils Percent Auto 0.8 % (2-4); Estimated Glomerular Filt Rate > 60.0 mL/min (>60); Globulin 2.7 g/dL (1.7-4.1); Glucose 99 mg/dL (80-110); HDL Cholesterol 54 mg/dL (40-60); HEMOLYSIS < 15 (0-50); Hematocrit 39.8 % (41-53); Hemoglobin 13.4 g/dL (13.5-17.5); LDL Cholesterol Calculated 40 mg/dL (<100); Lymphocytes Absolute Auto 1000 /uL (1100-4500); Lymphocytes Percent Auto 14.5 % (25-40); Mean Corpuscular HGB Conc 33.7 % (30-36); Mean Corpuscular Hemoglobin 32.5 PG (26-34); Mean Corpuscular Volume 96.4 fL (80-100); Monocytes Absolute Auto 600 /uL (0-900); Monocytes Percent Auto 8.2 % (3-14); Neutrophils Absolute Auto 5200 /uL (1500-7000); Neutrophils Percent Auto 76.1 % (50-75); Platelet Count 130 X10^3/uL (150-400); Potassium 4.8 mmol/L (3.4-5.1); Red Blood Cell Count 4.13 X10^6/uL (4.5-5.9); Red Cell Distribution Width 14.5 % (11.6-14.8); Sodium 139 mmol/L (137-145); Total Protein 7.1 g/dL (6.3-8.2); Triglycerides 70 mg/dL (35-150); White Blood Cell Count 6.9 X10^3/uL (4.5-11.0)
[2021-03-15 14:19] LABS: INR 2.1 (0.9-1.3); Prothrombin Time 23.4 SECONDS (10.1-12.7)
== END ==
PROVIDERS: PCP Internal Medicine; Referring Provider Internal Medicine; Visit Provider Internal Medicine
DX: Z79.01 Long term (current) use of anticoagulants (principal); Z95.2 Presence of prosthetic heart valve; E78.5 Hyperlipidemia, unspecified; I10 Essential (primary) hypertension; I25.10 Atherosclerotic heart disease of native coronary artery without angina pectoris
CPT/HCPCS: 36415; 80053; 80061; 85025; 85610

== ENCOUNTER → 2021-04-20 13:33 | Outpatient (CLI) | payer MEDICARE, SELFPAY ==
[2021-04-20 14:05] LABS: INR 2.8 (0.9-1.3); Prothrombin Time 32.6 SECONDS (10.1-12.7)
== END ==
PROVIDERS: PCP Internal Medicine; Referring Provider Internal Medicine; Visit Provider Internal Medicine
DX: Z79.01 Long term (current) use of anticoagulants (principal); Z95.4 Presence of other heart-valve replacement
CPT/HCPCS: 36415; 85610

== ENCOUNTER → 2021-05-08 07:45 | Outpatient (CLI) | payer MEDICARE, SELFPAY ==
[2021-05-08 09:09] LABS: Alanine Aminotransferase 36 IU/L (<50); Albumin 4.1 g/dL (3.5-5.0); Albumin Globulin Ratio 1.7 (1.0-2.8); Alkaline Phosphatase 42 U/L (38-126); Aspartate Aminotransferase 39 IU/L (17-59); BUN Creatinine Ratio 18.9 (6-22); Bilirubin Total 0.7 mg/dL (0.2-1.3); Blood Urea Nitrogen 17 mg/dL (9-20); Calcium 9.3 mg/dL (8.4-10.2); Carbon Dioxide 30 mmol/L (22-32); Chloride 104 mmol/L (98-107); Estimated Glomerular Filt Rate > 60.0 mL/min (>60); Globulin 2.4 g/dL (1.7-4.1); Glucose 105 mg/dL (80-110); HEMOLYSIS < 15 (0-50); Magnesium 2.2 mg/dL (1.6-2.3); Sodium 141 mmol/L (137-145); Total Protein 6.5 g/dL (6.3-8.2)
[2021-05-08 13:20] LABS: INR 2.9 (0.9-1.3); Prothrombin Time 33.2 SECONDS (10.1-12.7)
[2021-05-10 08:09] LABS: Cholesterol, Total 116 mg/dL (100-199); HDL-Cholesterol 59 mg/dL (>39); HDL-Particle (Total) 35.8 umol/L (>=30.5); LDL Particle 564 nmol/L (<1000); LDL Size 19.9 nm (>20.5); LDL-Cholsterol 42 mg/dL (0-99); LP-IR Score <25 (<=45); Small LDL- Particle 287 nmol/L (<=527); Triglycerides 75 mg/dL (0-149)
== END ==
PROVIDERS: PCP Internal Medicine; Referring Provider Specialist; Visit Provider Specialist
DX: I10 Essential (primary) hypertension (principal); E78.00 Pure hypercholesterolemia, unspecified; Z79.01 Long term (current) use of anticoagulants; Z95.4 Presence of other heart-valve replacement
CPT/HCPCS: 36415; 80053; 80061; 83704; 83735; 85610